=== PATIENT | female | born 1970 | race Two or more races ===

== ENCOUNTER 2021-05-04 09:48 | Emergency (ER) | payer MEDICAID ==
[~2021-05-04] VITALS: Ht 152.4 cm; Wt 72.7 kg
--- NOTE | 2021-05-04 10:23 | PHYS DOC ---
Past Medical History Past Medical History: Diabetes-Type II (NICK SCOTT APRN) Past Surgical History: Cholecystectomy (NICK SCOTT APRN) Smoking Status: Never Smoker Alcohol Use: None (NICK SCOTT APRN) General Adult EDM: Chief Complaint: FLU SYMPTOM HPI: HPI: Patient is a 50-year-old female that presents today via [facility] with her 10-year-old son for complaint of not feeling well and body aches since 8:00 this morning. Patient states that she woke up this morning was not feeling well had some body aches and cough she checked her blood sugar she states the blood sugar was 90, patient states she ate food and still was not feeling well then called EMS for transport to the hospital. Patient denies denies having any other Covid vaccines. Patient denies chest pain, or shortness of air. (NICK SCOTT APRN) Review of Systems: Review of Systems: Constitutional: Denies fever or chills. [] Eyes: Denies change in visual acuity. [] HENT: Denies nasal congestion or sore throat. [] Respiratory: cough; denies shortness of breath. [] Cardiovascular: Denies chest pain or edema. [] GI: Denies abdominal pain, nausea, vomiting, bloody stools or diarrhea. [] : Denies dysuria. [] Musculoskeletal: Denies back pain or joint pain. [] Integument: Denies rash. [] Neurologic: Generalized weakness Endocrine: Denies polyuria or polydipsia. [] Lymphatic: Denies swollen glands. [] Psychiatric: Denies depression or anxiety. [] (NICK SCOTT APRN) Heart Score: C/O Chest Pain: N/A Risk Factors: Risk Factors: DM, Current or recent (<one month) smoker, HTN, HLP, family history of CAD, obesity. Risk Scores: Score 0 - 3: 2.5% MACE over next 6 weeks - Discharge Home Score 4 - 6: 20.3% MACE over next 6 weeks - Admit for Clinical Observation Score 7 - 10: 72.7% MACE over next 6 weeks - Early Invasive Strategies (NICK SCOTT APRN) Allergies: Allergies: Allergies Coded Allergies Type Severity Reaction Last Updated Verified amoxicillin Adverse Reaction Unknown "it doesn't work" 05/04/21 Yes (NICK SCOTT APRN) Physical Exam: PE: Constitutional: Well developed, well nourished, no acute distress, non-toxic appearance. [] HENT: Normocephalic, atraumatic, bilateral external ears normal, oropharynx moist, no oral exudates, nose normal. [] Eyes: PERRLA, EOMI, conjunctiva normal, no discharge. [] Neck: Normal range of motion, no tenderness, supple, no stridor. [] Cardiovascular:Heart rate regular rhythm, no murmur [] Lungs & Thorax: Bilateral breath sounds clear to auscultation, cough noted while at the bedside Abdomen: Bowel sounds normal, soft, no tenderness, no masses, no pulsatile kalli s. [] Skin: Warm, dry, no erythema, no rash. [] Back: No tenderness, no CVA tenderness. [] Extremities: No tenderness, no cyanosis, no clubbing, ROM intact, no edema. [] Neurologic: Alert and oriented X 3, normal motor function, normal sensory function, no focal deficits noted. [] Psychologic: Affect normal, judgement normal, mood normal. [] (NICK SCOTT APRN) Current Patient Data: Labs: Laboratory Tests Test 05/04/21 09:58 05/04/21 10:14 Influenza Type A Antigen Negative Influenza Type B Antigen Negative SARS-CoV-2 Antigen (Rapid) Negative Bedside Urine HCG, Qualitative Hcg negative Vital Signs: Vital Signs Date Time Temp Pulse Resp B/P (MAP) Pulse Ox O2 Delivery O2 Flow Rate FiO2 05/04/21 09:51 98.2 89 20 122/72 (89) 99 Room Air 98.2 (NICK SCOTT APRN) EKG: EKG: [] (NICK SCOTT APRN) Radiology/Procedures: Radiology/Procedures: REASON: cough PROCEDURE: CHEST AP ONLY EXAM: Chest, single view. HISTORY: Cough. COMPARISON: None. FINDINGS: A frontal view of the chest is obtained. There is no infiltrate, pleural effusion or pneumothorax. The heart is normal in size. IMPRESSION: No acute pulmonary finding. Electronically signed by: Madison Sprague MD (05/04/2021 10:50 AM) [id number] [] (NICK SCOTT APRN) Course & Med Decision Making: Course & Med Decision Making Pertinent Labs and Imaging studies reviewed. (See chart for details) Talk to patient regarding the possibility she may have COVID-19 patient was told that we will do a rapid COVID-19 test but the PCR that will come back in 24 to 48 hours is the most accurate of the test she will need to quarantine until the PCR comes back, along with her entire family. Her son is at the bedside in the negative pressure room because there is no one to take him. Patient verbalized understanding of the need to quarantine until her test results come back. Patient also informed if she does have COVID-19 she will need to quarantine for 14 days as per the CDC guidelines 1130 spoke to patient regarding her COVID-19 and influenza results status are negative at this time but does not mean that she is negative we will send the swabs off for PCR Covid. Patient will need to quarantine until those results are back either positive or negative. Patient encouraged to eat well-balanced meals to drink plenty of fluids over the next couple days take Tylenol and/or ibuprofen as needed for pain. Return to the emergency department for increased work of breathing, chest pain, inability to catch her breath, or fever not controlled with Tylenol and/or ibuprofen. Patient verbalizes understanding of the plan of care and agrees with plan of care (NICK SCOTT APRN) Dragon Disclaimer: Dragon Disclaimer: This electronic medical record was generated, in whole or in part, using a voice recognition dictation system. (NICK SCOTT APRN) Departure Departure Impression: Primary Impression: Suspected 2019 novel coronavirus infection Disposition: HOME / SELF CARE / HOMELESS Condition: STABLE Referrals: SAEED VORA MD Additional Instructions: Increase by mouth fluids and making sure you are eating well-balanced meals Tylenol and/or ibuprofen as needed for pain and fever and body aches Follow the below recommendations for COVID-19 quarantining Return to the emergency department for increased chest pain, increased work of breathing, shortness of breath, or fever not controlled with Tylenol and/or ibuprofen You have been tested for or diagnosed with COVID-19. It is an infection caused by a new type of coronavirus. COVID-19 will cause cold-like or mild flu symptoms in most. It can cause more severe symptoms like problems breathing in some. There is no treatment for COVID-19. The body will clear the infection over time. Self-care will help to ease discomfort. Steps to Take: Self-Care Rest as needed. Healthy habits may help you feel better. Steps include: Choose healthy foods including fruits and vegetables. Drink water throughout the day. Get plenty of sleep each night. If you smoke, try to quit. It may ease breathing. Avoid alcohol. Keep Others Healthy The virus can spread to others. Droplets are released every time you sneeze or cough. The droplets can get into the mouth, nose, or eyes of people near you and lead to infection. To lower the chances of spreading COVID-19 to others: Stay at home until your doctor has said it is safe to leave. If you tested positive this will mean staying isolated until both of the following are true: At least 7 days have passed since the start of illness. You are free of fever for at least 72 hours without the use of medicine. During this time: - Avoid public areas, events, or transportation. Do not return to work or school until your doctor has said it is safe to do so. - Call ahead if you need to go to a medical center. Let them know you may have COVID-19. It will help them guide you where to go. They may also ask you to wear a facemask when you come to the office. - If you call for emergency medical services, let them know you may have COVID- 19. While at home: - Try to avoid close contact with others. Stay about 6 feet away. - If possible, spend most of your time in a separate room from others. - Use a face mask if you will be in close contact with others such as sharing a room or vehicle. - Have someone wipe down common surfaces in the home. Use household speech instructor every day on areas like doorknobs, counters, or sinks. - Cough or sneeze into a tissue. Throw the tissue away right after use. If a tissue is not available, cough or sneeze into your elbow. - Wash your hands often. Wash them after sneezing or coughing. Use soap and water and wash for at least 20 seconds. Alcohol based hand freight car cleaner delta system can be used if soap and water is not available. - Do not prepare food for others. Avoid sharing personal items like forks, spoons, or toothbrushes. - Avoid close contact with pets while you are sick. There is no evidence of the virus passing to pets. This is a safety step until more is known about this virus. Isolation can be frustrating. Social interaction can help. Keep in touch with friends and family through phone and tech options. You can still interact with others in your home, just keep a safe distance of about 6 feet. Follow-up: Your doctors office will check in with you to see if there are any changes in your health. You may be asked to keep track of symptoms to share with them. They will also let you know when you are clear to be in public again. Problems to Look Out For: Contact your doctor if your recovery is not going as you expect. Get emergency care if you have problems such as: - Trouble breathing - Nonstop chest pain or pressure - Changes in awareness, confusion, or problems waking - Lips or face have bluish color - Worsening of symptoms If you think you have an emergency, call for emergency medical services right away. As taken from [facility] Attending Signature Attending Signature I have reviewed the PA/REPLANTING MACHINE OPERATOR's note and plan of care. I was available for consultation as needed during the patient's visit in the emergency department. I agree with the clinical impression, plan, and disposition. (SAEED OLIVER DO) NICK SCOTT APRN May 04, 2021 10:23 SAEED OLIVER DO May 05, 2021 06:34
--- NOTE | 2021-05-04 10:53 | RAD ---
EXAM: Chest, single view. HISTORY: Cough. COMPARISON: None. FINDINGS: A frontal view of the chest is obtained. There is no infiltrate, pleural effusion or pneumo thorax. The heart is normal in size. IMPRESSION: No acute pulmonary finding. Electronically signed by: Madison Sprague MD (05/04/2021 10:50 AM) [id number]
[2021-05-04 10:56] LABS: INFLUENZA A PATIENT NEGATIVE (NEGATIVE); INFLUENZA B PATIENT NEGATIVE (NEGATIVE)
[2021-05-04 11:51] VITALS: BP 118/75
--- NOTE | 2021-05-04 19:16 | EKG ---
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
--- NOTE | 2021-05-07 10:38 | NUR ---
IP: No phone number provided to reach pt for covid results. Will mail results.
== END 2021-05-04 12:13 | disposition home or self-care (01) ==
LOC: ER 12:13
DX: M79.10 Myalgia, unspecified site (principal); R05.9 Cough, unspecified; R53.1 Weakness; E11.9 Type 2 diabetes mellitus without complications; Z20.822 Contact with and (suspected) exposure to COVID-19; Z88.1 Allergy status to other antibiotic agents
CPT/HCPCS: 71045; 81025; 87426; 87804; 93005; 99285; U0003; U0005